=== PATIENT | male | born 1955 | race African-American/Black ===

== ENCOUNTER 2022-02-17 22:48 | Emergency (ER) | payer OTHER ==
[~2022-02-17] VITALS: Ht 182.9 cm; Wt 90.7 kg
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
--- NOTE | 2022-02-17 23:08 | NUR ---
DR Miranda in room 1 for MSE
--- NOTE | 2022-02-18 00:40 | NUR ---
call to [facility] informed still waiting on a read for xrays performed.
[2022-02-18] MEDS ORDERED: OXYC-128 PO (00:42)
[2022-02-18] MEDS: OXYCODONE/APAP 5-325 MG TABLET PO ONE (02:11)
[2022-02-18 02:12] VITALS: BP 145/75
--- NOTE | 2022-02-18 02:12 | NUR ---
Patient discharged to home in stable condition accompanied by the and daughter. Written and verbal after care instructions given. Patient verbalizes understanding of instructions. Stressed follow up or return to ER for worsening s/s.
[2022-02-18] MEDS ORDERED: OXYCODONE/APAP 5-325 MG TABLET ONE (02:13)
== END 2022-02-18 02:13 | disposition home or self-care (01) ==
LOC: ER 22:52
DX: S39.012A Strain of muscle, fascia and tendon of lower back, initial encounter (principal); S29.012A Strain of muscle and tendon of back wall of thorax, initial encounter; V43.92XA Unspecified car occupant injured in collision with other type car in traffic accident, initial encounter; Y92.414 Local residential or business street as the place of occurrence of the external cause; I10 Essential (primary) hypertension; E11.9 Type 2 diabetes mellitus without complications; Z93.3 Colostomy status; Z85.46 Personal history of malignant neoplasm of prostate; Z92.3 Personal history of irradiation; Z79.899 Other long term (current) drug therapy; R53.1 Weakness
CPT/HCPCS: 72072; 72100; A4663